=== PATIENT | female | born 1990 | race Caucasian/White ===

== ENCOUNTER → 2016-12-21 | Outpatient (CLI) | payer OTHER | LOC: FIMAGING 09:06 | PROVIDERS: ATTEND Family Medicine | DX: N60.12 Diffuse cystic mastopathy of left breast (principal) | CPT/HCPCS: G0204 ==

== ENCOUNTER 2017-03-08 14:12 | Inpatient (IN) | payer OTHER ==
--- NOTE | 2017-03-08 14:46 | EDPHY ---
H & P Time Seen by Provider: 03/08/17 14:32 HPI/ROS: CHIEF COMPLAINT: Trouble speaking HISTORY OF PRESENT ILLNESS: 27-year-old woman has a history of pseudotumor cerebri and had monthly spinal taps with 2 previous pregnancies. At that time her symptoms were difficulty hearing and difficulty with vision. She went on a date last night got home around midnight was normal. She awoke at 9:00 a.m. today and felt dizzy and off balance and had difficulty speaking. According to her mother was here with her she has had difficulty finishing sentences and trouble stating the names of her children. Patient arrives tearful and says that she "feels confused" and says there is an associated left-sided headache with nausea but no visual symptoms. No hearing symptoms. REVIEW OF SYSTEMS: Eye: no change in vision ENT: no sore throat Cardiac: no chest pain or syncope Pulmonary: no cough or SOB Abdomen: no vomiting, diarrhea, abdominal pain Musculoskeletal: No neck pain Skin: no rash Neuro: HPI Constitutional: no fever : no urinary symptoms A comprehensive 10 point review of systems is otherwise negative aside from elements mentioned in the history of present illness. PAST MEDICAL HISTORY: Includes pseudotumor cerebri as noted above, anxiety and irritable bowel, thyroid cancer, appendectomy, right ankle surgery, tubal ligation. Molar , cervical cancer, migraine headaches. Social history: 1 drink last night, occasional alcohol, no smoking or drugs. General Appearance: Alert and conversant, cooperative. Tearful and anxious. Eyes: No scleral icterus. Discs appear sharp, extraocular motion intact, no proptosis. ENT, Mouth: Normal mucous membranes. Respiratory: Normal respiratory effort, breath sounds equal, lungs are clear to auscultation. Cardiovascular: Regular rate and rhythm. Gastrointestinal: Abdomen is soft and non tender. Neurological: Alert, follows commands. Knows her name and age. Speech is hesitant, mild word-finding difficulty. Face is symmetric, she has difficulty lifting her left leg off the bed but can do so, it is subjectively slightly weaker than or other 3 extremities. No pronator drift or tremor and normal [id number]. Skin: Warm and dry, no rashes. Musculoskeletal: No peripheral edema and no joint swelling. Psychiatric: Tearful, appears anxious. Emergency Department course/MDM: Patient made stroke alert at 2:45 p.m. She has difficulty with word finding and speech as well as weakness in her left leg. Last known normal was at midnight, which is less than 24 hours prior to now. Jodi 1452. 1508: Normal noncontrast head CT. 1515: Negative CT angiography of the head, Helgans. 1521: No acute treatment or additional emergency department diagnostics per Mckenna, admit, Neurology consultation, consider MRI Discussed with patient and mother at 3:25 p.m., Reglan 10 mg IV and Toradol 15 mg IV. 1529: Dr. Rayo Fox will consult. 1536: [place] for Dr. Patton. Smoking Status: Former smoker Constitutional: Initial Vital Signs Temperature (C) 36.9 C 03/08/17 14:17 Heart Rate 82 03/08/17 14:17 Respiratory Rate 14 03/08/17 14:17 Blood Pressure 134/86 H 03/08/17 14:17 O2 Sat (%) 96 03/08/17 14:17 O2 Delivery Mode Room Air Allergies/Adverse Reactions: azithromycin Allergy (Severe, Verified 03/08/17 14:16) Hives ceftriaxone sodium [From Rocephin] Allergy (Severe, Verified 03/08/17 14:16) Hives Cephalosporins Allergy (Severe, Verified 03/08/17 14:16) Anaphylaxis metronidazole Allergy (Verified 03/08/17 14:16) Home Medications: Medication Instructions Recorded Cetirizine [ZyrTEC 10 mg (*)] 10 mg PO DAILY PRN 03/08/17 Ondansetron Odt [Zofran Odt 4 mg 4 mg PO Q4 PRN 03/08/17 (*)] Thyroid,Pork [Jackson Thyroid] 30 mg PO DAILY@14 03/08/17 Thyroid,Pork [Jackson Thyroid] 90 mg PO DAILY 03/08/17 Topiramate [Topamax] 50 mg PO HS 03/08/17 Medical Decision Making - Diagnostics EKG Interpretation: 12-lead EKG interpreted by me; official reading is in trace master. My interpretation is sinus rhythm, normal intervals, no ischemic changes. Imaging Results: Imaging Impressions Chest X-Ray 03/08/17 14:45 Impression: Negative. Head CT 03/08/17 14:45 Impression: Normal brain. No intracranial hemorrhage or evidence of acute cortical ischemia. Findings discussed with Emergency Department physician, BALWINDER PIMENTEL at 2016 15:07. Head CTA 03/08/17 14:46 Impression: 1. Normal intracranial arterial circulation. No evidence of embolic disease or aneurysm. 2. Patent venous system. Findings discussed with Emergency Department physician, Balwinder Pimentel M.D., on March 08, 2017 at 1515. Neck CTA 03/08/17 14:46 Impression: Normal carotid and vertebral arteries. No dissection or occlusion. Findings discussed with Emergency Department physician, Balwinder Pimentel M.D., on March 08, 2017 at 1515. Measurement of carotid stenosis is based on the residual internal carotid diameter with [place] Symptomatic Carotid Endarterectomy Trial (NASCET) based stenosis levels. Differential Diagnosis: Differential considered including but not limited to seizure, intracranial mass or bleed, ischemic stroke, multiple sclerosis. Critical Care Time: Critical care time spent by me, Dr. Pimentel, exclusively with the care of this patient was 35 minutes, exclusive of PA or COMMERCIAL ACCOUNTANT time and exclusive of separate procedures. The organ system at risk was neurologic and I ordered multiple diagnostics, serial examinations, consultation with Dr. Fox and [facility], to evaluate and stabilize the patient's condition. - Data Points Laboratory Results: Laboratory Results 03/08/17 14:32 03/08/17 14:32 03/08/17 03/08/17 03/08/17 14:44 14:32 14:32 WBC RBC Hgb POC Hgb 15.3 gm/dL gm/dL (12.6-16.3) Hct POC Hct 45 % % (38-47) MCV MCH MCHC RDW Plt Count MPV Neut % (Auto) Lymph % (Auto) [place] % (Auto) Eos % (Auto) Baso % (Auto) Nucleat RBC Rel Count Absolute Neuts (auto) Absolute Lymphs (auto) Absolute Monos (auto) Absolute Eos (auto) Absolute Basos (auto) Absolute Nucleated RBC Immature Gran % Immature Gran # PT INR POC Sodium 141 mEq/L mEq/L (134-144) Sodium 141 mEq/L mEq/L (134-144) POC Potassium 3.7 mEq/L mEq/L (3.3-5.0) Potassium 3.7 mEq/L mEq/L (3.5-5.2) POC Chloride 104 mEq/L mEq/L (97-110) Chloride 107 mEq/L mEq/L (97-110) Carbon Dioxide 19 mEq/l L mEq/l (22-31) Anion Gap 15 mEq/L mEq/L (8-16) POC BUN 11 mg/dL mg/dL (7-23) BUN 11 mg/dL mg/dL (7-23) Creatinine 0.7 mg/dL mg/dL (0.6-1.0) POC Creatinine 0.8 mg/dL mg/dL (0.6-1.0) Estimated GFR > 60 Glucose 90 mg/dL mg/dL (70-100) POC Glucose 92 mg/dL mg/dL (70-100) Calcium 9.1 mg/dL mg/dL (8.5-10.4) Troponin I < 0.012 ng/mL ng/mL (0-0.034) Beta HCG, Qual NEGATIVE 03/08/17 03/08/17 14:32 14:32 WBC 7.88 10^3/uL 10^3/uL (3.80-9.50) RBC 5.19 10^6/uL 10^6/uL (4.18-5.33) Hgb 15.2 g/dL g/dL (12.6-16.3) POC Hgb Hct 43.3 % % (38.0-47.0) POC Hct MCV 83.4 fL fL (81.5-99.8) MCH 29.3 pg pg (27.9-34.1) MCHC 35.1 g/dL g/dL (32.4-36.7) RDW 12.9 % % (11.5-15.2) Plt Count 226 10^3/uL 10^3/uL (150-400) MPV 9.6 fL fL (8.7-11.7) Neut % (Auto) 69.6 % % (39.3-74.2) Lymph % (Auto) 21.6 % % (15.0-45.0) [place] % (Auto) 6.9 % % (4.5-13.0) Eos % (Auto) 1.1 % % (0.6-7.6) Baso % (Auto) 0.4 % % (0.3-1.7) Nucleat RBC Rel Count 0.0 % % (0.0-0.2) Absolute Neuts (auto) 5.49 10^3/uL 10^3/uL (1.70-6.50) Absolute Lymphs (auto) 1.70 10^3/uL 10^3/uL (1.00-3.00) Absolute Monos (auto) 0.54 10^3/uL 10^3/uL (0.30-0.80) Absolute Eos (auto) 0.09 10^3/uL 10^3/uL (0.03-0.40) Absolute Basos (auto) 0.03 10^3/uL 10^3/uL (0.02-0.10) Absolute Nucleated RBC 0.00 10^3/uL 10^3/uL (0-0.01) Immature Gran % 0.4 % % (0.0-1.1) Immature Gran # 0.03 10^3/uL 10^3/uL (0.00-0.10) PT 13.8 SEC SEC (12.0-15.0) INR 1.07 (0.83-1.16) POC Sodium Sodium POC Potassium Potassium POC Chloride Chloride Carbon Dioxide Anion Gap POC BUN BUN Creatinine POC Creatinine Estimated GFR Glucose POC Glucose Calcium Troponin I Beta HCG, Qual Medications Given: Discontinued Medications Sodium Chloride (Ns) 1,000 mls @ 0 mls/hr IV ONCE ONE; Wide Open PRN Reason: Protocol Stop: 03/08/17 15:29 Last Admin: 03/08/17 15:46 Dose: 1,000 mls Ketorolac Tromethamine (Toradol) 15 mg IVP EDNOW ONE Stop: 03/08/17 15:29 Last Admin: 03/08/17 15:46 Dose: 15 mg Metoclopramide HCl (Reglan Injection) 10 mg IVP EDNOW ONE Stop: 03/08/17 15:29 Last Admin: 03/08/17 15:46 Dose: 10 mg Point of Care Test Results: 03/08/17 14:44 POC Sodium 141 POC Potassium 3.7 POC Chloride 104 POC BUN 11 POC Creatinine 0.8 POC Glucose 92 Departure - Departure Disposition: [facility] Inpatient Acute Clinical Impression: Left leg weakness, Word finding difficulty Condition: Good
[2017-03-08] MEDS ORDERED: IOPAMIDOL (ISOVUE 370) 100 ML BTL IV ONE (14:47)
[2017-03-08 14:55] LABS: % IMMATURE GRANULYOCYTES 0.4 % (0.0-1.1); ABSOLUTE IMMATURE GRANULOCYTES 0.03 10^3/uL (0.00-0.10); ADD DIFF? NO; ADD MORPH? NO; ADD SCAN? NO; ATYPICAL LYMPHOCYTE FLAG 0 (0-99); FRAGMENT RBC FLAG 0 (0-99); HEMATOCRIT 43.3 % (38.0-47.0); HEMOGLOBIN 15.2 g/dL (12.6-16.3); LEFT SHIFT FLG 0 (0-99); LIPEMIA HEMOLYSIS FLAG 90 (0-99); MEAN CELL HEMOGLOBIN 29.3 pg (27.9-34.1); MEAN CELL HEMOGLOBIN CONCENTR. 35.1 g/dL (32.4-36.7); MEAN CELL VOLUME 83.4 fL (81.5-99.8); MEAN PLATELET VOLUME 9.6 fL (8.7-11.7); PLATELET CLUMPS FLAG 0 (0-99); PLATELET COUNT 226 10^3/uL (150-400); RED BLOOD CELL COUNT 5.19 10^6/uL (4.18-5.33); RED CELL DISTRIBUTION WIDTH 12.9 % (11.5-15.2)
[2017-03-08 15:00] LABS: ANION GAP 15 mEq/L (8-16); CALCIUM 9.1 mg/dL (8.5-10.4); CARBON DIOXIDE 19 mEq/l (22-31); CHLORIDE 107 mEq/L (97-110); CREATININE 0.7 mg/dL (0.6-1.0); GLOMERULAR FILTRATION RATE > 60; GLUCOSE 90 mg/dL (70-100); POTASSIUM 3.7 mEq/L (3.5-5.2); SODIUM 141 mEq/L (134-144)
[2017-03-08 15:02] LABS: INR 1.07 (0.83-1.16); PROTIME(PATIENT) 13.8 SEC (12.0-15.0)
[2017-03-08 15:12] LABS: TROPONIN I < 0.012 ng/mL (0-0.034)
--- NOTE | 2017-03-08 15:25 | CPEKG ---
Heart Rate: 71 RR Interval: 845 P-R Interval: 172 QRSD Interval: 86 QT Interval: 396 QTC Interval: 431 P [place]: 23 QRS [place]: 25 T Wave [place]: 12 EKG Severity - NORMAL ECG - EKG Impression: SINUS RHYTHM Electronically Signed By: Lloyd Ojeda 08-Mar-2017 16:15:04
[2017-03-08] MEDS ORDERED: KETOROLAC 30 MG/1 ML SDV IVP ONE (15:28)
[2017-03-08] MEDS ORDERED: METOCLOPRAMIDE 10 MG/2 ML VIAL IVP ONE (15:28)
[2017-03-08] MEDS ORDERED: NS 1,000 ML IV ONE (15:28)
[2017-03-08] MEDS ORDERED: ONDANSETRON 4 MG/2 ML VIAL ONE (15:29)
[2017-03-08] MEDS ORDERED: PROMETHAZINE HCL 25 MG/ML INJ IVP PRN (17:08)
[2017-03-08] MEDS ORDERED: METOCLOPRAMIDE 10 MG/2 ML VIAL IVP PRN (17:08)
[2017-03-08] MEDS ORDERED: ONDANSETRON 4 MG/2 ML VIAL IVP PRN (17:08)
[2017-03-08] MEDS ORDERED: NS 1,000 ML IV SCH (17:15)
--- NOTE | 2017-03-08 17:47 | GHP ---
[f rep st] HISTORY AND PHYSICAL DATE OF ADMISSION: 03/08/2017 CHIEF COMPLAINT: Left leg weakness and difficulty speaking. HISTORY OF PRESENT ILLNESS: This is a 27-year-old female with a history of pseudotumor cerebri who presents with left leg weakness and difficulty speaking. She is right-handed. She went out to [employer] [place], came back home last night, and went to bed around midnight. At that point, she did not have any weakness but she felt slightly "loopy." She woke up this morning dizzy, called her to help her to the bathroom. She thought she was walking straight but ran into the wall. She did not fall . She describes her left leg to be quite "heavy." She also says that, as well, she cannot feel sen sation in that leg. She also tells me she is slightly confused. She is having difficulty finding t he right word. Per her mom, she is also mixing up some words. She tells me she has some left-sided low back pain. She tells me she has a history of meningitis diagnosed in 2009, she describes this as viral, not treated with antibiotics. She has a headache which is worse than normal. She has a l ittle bit of neck pain. She is able to fully flex her neck without worsening of her pain. She came into the ED as a stroke alert. CT non-contrast of her head, as well as CT angio of her hea d and neck were normal. PAST MEDICAL/SURGICAL HISTORY: 1. Pseudotumor cerebri. 2. Viral meningitis. 3. Thyroid cancer, status post thyroidectomy. 4. Obesity. 5. Cystic fibrosis carrier. 6. Anxiety. MEDICATIONS: She tells me she takes Topamax and Freeland. ALLERGIES: Azithromycin, Rocephin, cephalosporins, Flagyl. SOCIAL HISTORY: She is . She has 2 kids. She rarely drinks. She does not smoke. She is a ccompanied by her mom. FAMILY HISTORY: No thyroid cancer. REVIEW OF SYSTEMS: 10-point review of systems is conducted and is negative except per HPI. PHYSICAL EXAMINATION: VITAL SIGNS: Blood pressure 133/72, heart rate 72, respiration rate 18, satt ing at 98% on room air, temperature 36.4. GENERAL: The patient is a pleasant obese female, who valentina ears distressed, almost tearful. HEENT: Normocephalic, atraumatic. CARDIOVASCULAR: Regular rate and rhythm. No murmurs, rubs, or gallops. She does have a scar consistent with thyroidectomy. PUL MONARY: In no respiratory distress. Clear to auscultation bilaterally. ABDOMEN: Soft, nontender, nondistended. SKIN: No rash. : No Bertrand. NEUROLOGIC: cranial nerves 2-12 intact. She is al ert and oriented x3. She has trouble repeating short phrases. She is speaking somewhat slowly alth ough fluently on my exam. She has no pronator drift. Strength is 5/5 in her upper extremities. It is 2/5 in her left lower extremity and 5/5 in her right lower extremity. Sensation to light touch is diminished in the right upper extremity as well as her left lower extremity. PSYCHIATRIC: Borde rline tearful. LABORATORY: CBC is normal. INR is normal. Basic metabolic panel is normal, glucose is 92. DATA: 1. Neck CT angiogram shows normal carotid and vertebral arteries. 2. Head CT angiogram shows normal circulation, no embolic disease or aneurysm, and patent venous sy stem. 3. Head CT shows normal brain. 4. EKG, which I personally viewed and interpreted, shows sinus rhythm, normal axis; T-wave inversio n in V1 and V2, as well as lead III. Nothing acutely ischemic. I discussed this with Dr. Fox, will proceed with a brain MRI. IMPRESSION/PLAN: 1. This is a 27-year-old female, who presents with difficulty speaking, left lower extremity weakne ss, some subjective left upper extremity weakness, and subjective right upper extremity decreased se nsation: Neurologic findings do not fit very well anatomically. She does have a history of pseudot umor cerebri. She also has a history of meningitis; both of these are on the differential. Stroke is on the differential, as well as conversion disorder. At this point, will proceed with MRI with a nd without contrast of her brain. Dr. Fox will consult. Could consider lumbar spine MRI, giv en her back pain, but will hold for now. Will hold off on lumbar puncture at this time, as well. W ill check B 12 and TSH, as well as full metabolic panel. 2. History of pseudotumor cerebri. 3. History of hypothyroid: Continue her Freeland Thyroid. 4. History of headaches: Continue her Topamax. /[id number]/MODL
[2017-03-08] MEDS ORDERED: GADOBUTROL 10 ML VIAL IVP ONE (18:41)
[2017-03-08] MEDS ORDERED: CETIRIZINE 10 MG TAB PO PRN (18:55)
[2017-03-08 19:19] LABS: COLOR PALE YELLOW; LEUKOCYTE ESTERASE,URINE NEGATIVE (NEGATIVE); NITRITE,URINE NEGATIVE (NEGATIVE)
[2017-03-08 19:54] LABS: MAGNESIUM 1.9 mg/dL (1.6-2.3)
[2017-03-08] MEDS ORDERED: NON-FORMULARY NEW DRUG (Topiramate [Topamax] 50 MG) PO SCH (21:00)
--- NOTE | 2017-03-08 21:07 | GCON ---
[f rep st] CONSULTATION GASTROENTEROLOGY CONSULTATION REFERRING PHYSICIAN: Tomás Ramey MD The patient is a 27-year-old woman with a complex history of thyroid cancer, as well as history of p seudotumor cerebri, treated in the past with Diamox and repeated lumbar punctures. She has had two pregnancies, and has a 2-year-old and a 3-year-old. One of her children has autism. She says that she and her are in couples therapy, but she has been feeling fairly good lately. She presen ledy to the hospital emergency department today and was seen by Dr. Shah. At that time she had repor ledy that she went to bed feeling fine, got up at 9:00 a.m. and was feeling dizzy and off balance, an d eventually started having some trouble with her verbal expression. She was veering as she walked and describes the dizziness as being a disequilibrium rather than true vertigo. Her mother noticed that she was having trouble expressing herself. She was feeling confused and was tearful. She has had some headache with nausea. She has a little bit of light sensitivity now. She says that this i s not the same as some of her typical migraines in the past. She complains of feeling paresthesias and abnormal strength in the left side predominantly, which includes her face, arm and leg. She had told Dr. Ramey that there were some right arm symptoms as well with paresthesias. She has not guzman d any trauma or falls. REVIEW OF SYSTEMS: Negative for fever or chills. Otherwise a 10-point review of systems is complet ed and unremarkable. PAST MEDICAL HISTORY: History is as outlined above, but also right ankle surgery, tubal ligation, m olar , cervical cancer and migraine headache. She had a drink of alcohol last night but do es not have excessive drinking. No smoking or drug use. FAMILY HISTORY: It is not known from her maternal side who was adopted. PHYSICAL EXAMINATION: VITAL SIGNS: Blood pressure 133/72, pulse of 72, respirations 18, temperatur e 36.4. GENERAL: She is a mildly overweight woman in no acute distress. EYES: Clear. NECK: Sup ple, with no bruits or masses. CARDIAC: Regular rate and rhythm, no murmur. NEUROLOGIC: She is a wake, alert and attentive with an affect characterized by being a little bit flattened and seems a l ittle bit sad. She was almost tearful at times. She has a somewhat child-like demeanor, but is fri endly and able to communicate effectively. She says she really has been feeling good despite some o f the stresses that are happening, and says that going to therapy with her has been helpful. The patient is oriented and able to follow instructions. Pupils are 2 mm and reactive, no visual field loss. Extraocular movements are intact with no nystagmus. Normal facial movement and strengt h. Sensation she reports to be about 20% less in the left face compared to the right. Motor exam r eveals some inconsistencies with limited effort, and some give-way in the upper extremities, but at least 4/5 without clear-cut asymmetry, although rapid alternating movements are a little slowed in t he left arm compared to the right. Sensory testing in the upper extremities reveals a relative redu ction in sensation that is maybe 20% less in the left arm compared to the right. In the lower extre mities she has a much more profound decrease in sensation to touch, to the point where she says she cannot even feel me touching her, although she is able to feel the touch of a tuning fork and says t hat it feels warm. She can feel the vibration in the great toe bilaterally. The weakness in the le ft lower extremity is inconsistent, and in the 4/5 range. Right leg does not show any evidence of w eakness. Reflexes are a little brisk but symmetric. No pathologic reflexes. LABORATORIES: I have reviewed the diagnostic studies that included head CT, CT angiogram of the hea d and neck, and those are unremarkable. The laboratory studies show normal CBC, electrolytes, and coagulation studies. IMPRESSION: The patient is presenting with some subacute symptoms evolving over the last 12 hours, which are characterized by some speech difficulty, headache, variable feelings of dizziness, predomi nantly left-sided paresthesias and some weakness, and an examination characterized by inconsistencie s but perhaps some embellishment of minor deficits versus a functional disorder or a conversion diso rder. She has had previous evaluations over the years for pseudotumor cerebri, and the most recent evaluation 3 years ago did not show any evidence of increased intracranial pressure. This is not a typical presentation for pseudotumor cerebri, so I think that is relatively unlikely. Atypical migr tadeo phenomena is a differential consideration, as well as central nervous system demyelination, or less likely stroke. Although she says she is not feeling particularly stressed, she is in a situati on that would certainly be stressful with marital counseling and two young children, including a chi ld with autism. This is certainly unclear as to why she has this constellation of symptoms, but hopefully she will h ave spontaneous improvement. We will go through the appropriate workup to include brain MRI, lookin g for any structural lesions. Beyond that, clinical observation would be the plan, unless something changes to warrant additional workup. We will have her start working with PT and OT tomorrow, and move towards discharge as soon as she is stabilized or safe to be worked up as an outpatient. The t otal unit time was 55 minutes, with greater than 50% of the time counseling and eqas-vq-want discuss ion. /[id number]/MODL
[2017-03-08] MEDS: TOPIRAMATE 25 MG TAB PO SCH (21:17)
[2017-03-08] MEDS: ACETAMINOPHEN 325 MG TAB PO PRN (21:28)
[2017-03-08] MEDS: MELATONIN 3 MG TAB PO SCH (22:18)
[2017-03-09] MEDS: ACETAMINOPHEN 325 MG TAB PO PRN ×3 (02:46→22:04)
[2017-03-09] MEDS: ONDANSETRON DISINTEGRATING 4 MG TAB PO PRN ×2 (05:20→22:04)
[2017-03-09 06:09] LABS: % IMMATURE GRANULYOCYTES 0.4 % (0.0-1.1); ABSOLUTE IMMATURE GRANULOCYTES 0.03 10^3/uL (0.00-0.10); ADD DIFF? NO; ADD MORPH? NO; ADD SCAN? NO; ATYPICAL LYMPHOCYTE FLAG 10 (0-99); FRAGMENT RBC FLAG 0 (0-99); HEMATOCRIT 39.2 % (38.0-47.0); HEMOGLOBIN 13.2 g/dL (12.6-16.3); LEFT SHIFT FLG 0 (0-99); LIPEMIA HEMOLYSIS FLAG 80 (0-99); MEAN CELL HEMOGLOBIN 28.8 pg (27.9-34.1); MEAN CELL HEMOGLOBIN CONCENTR. 33.7 g/dL (32.4-36.7); MEAN CELL VOLUME 85.6 fL (81.5-99.8); PLATELET CLUMPS FLAG 0 (0-99); PLATELET COUNT 203 10^3/uL (150-400); RED BLOOD CELL COUNT 4.58 10^6/uL (4.18-5.33)
[2017-03-09 06:21] LABS: ALANINE AMINOTRANSFERASE 32 IU/L (9-52); ALBUMIN 3.5 g/dL (3.5-5.0); ALKALINE PHOSPHATASE 47 IU/L (38-126); ANION GAP 8 mEq/L (8-16); ASPARTATE AMINOTRANSFERASE 16 IU/L (14-46); BILIRUBIN,TOTAL 0.4 mg/dL (0.1-1.4); CALCIUM 8.5 mg/dL (8.5-10.4); CARBON DIOXIDE 19 mEq/l (22-31); CHLORIDE 111 mEq/L (97-110); CREATININE 0.8 mg/dL (0.6-1.0); GLOMERULAR FILTRATION RATE > 60; GLUCOSE 92 mg/dL (70-100); POTASSIUM 4.2 mEq/L (3.5-5.2); SODIUM 138 mEq/L (134-144); TOTAL PROTEIN 5.6 g/dL (6.3-8.2)
[2017-03-09] MEDS: THYROID 60 MG TAB PO SCH ×2 (08:11→13:19)
[2017-03-09] MEDS ORDERED: NON-FORMULARY NEW DRUG (Thyroid,Pork [Armour Thyroid] 90 MG) PO SCH (09:00)
--- NOTE | 2017-03-09 11:27 | HOSPPROG ---
Hospitalist Progress Note Assessment/Plan: # L leg weakness: complex migraine vs conversion disorder - appreciate neuro eval - work with PT/OT today # hypothyroid - armour thyroid Subjective: still weak in L leg; still with difficulty speaking Objective: Vital Signs Temp Pulse Resp BP Pulse Ox 36.6 C 65 20 122/55 H 95 03/09/17 08:03 03/09/17 08:03 03/09/17 08:03 03/09/17 08:03 03/09/17 08:03 Laboratory Results 03/09/17 05:17 03/09/17 05:17 03/08/17 03/09/17 03/10/17 05:59 05:59 05:59 Intake Total 2750 Balance 2750 PT 13.8 SEC (12.0-15.0) 03/08/17 14:32 INR 1.07 (0.83-1.16) 03/08/17 14:32 chart reviewed MRI reviewed - Physical Exam Constitutional: no apparent distress, appears nourished Cardiovascular: regular rate and rhythym, no murmur, rub, or gallop, systolic murmur Respiratory: no respiratory distress, no rales or rhonchi, clear to auscultation Gastrointestinal: normoactive bowel sounds, soft, non-tender abdomen, no palpable masses Neurologic: other (slow speech; L leg still weak) ICD10 Worksheet Patient Problems: Problems Problem Status Onset Pseudotumor cerebri syndrome Acute Left leg weakness Acute Word finding difficulty Acute
[2017-03-09] MEDS ORDERED: THYROID PORK 30 MG PO SCH (14:00)
[2017-03-09] MEDS: IBUPROFEN 200 MG TAB PO PRN (17:49)
[2017-03-09] MEDS: TOPIRAMATE 25 MG TAB PO SCH (21:59)
[2017-03-09] MEDS: MELATONIN 3 MG TAB PO SCH (21:59)
[2017-03-10] MEDS: IBUPROFEN 200 MG TAB PO PRN ×2 (02:36→12:01)
[2017-03-10 07:43] VITALS: BP 108/58; PULSE 66; RESP 16; TEMP 97.9; O2SAT 93
[2017-03-10] MEDS: THYROID 60 MG TAB PO SCH ×2 (07:51→13:00)
[2017-03-10] MEDS: ACETAMINOPHEN 325 MG TAB PO PRN (07:54)
--- NOTE | 2017-03-10 09:10 | HOSPPROG ---
Hospitalist Progress Note Assessment/Plan: #Left leg weakness: functional vs. conversion? -CT, CTA, and MRI with no structural lesions. Not typical symptoms with pseudotumor cerebri -aggressive PT/OT Objective: Vital Signs Temp Pulse Resp BP Pulse Ox 36.6 C 66 16 108/58 L 93 03/10/17 07:42 03/10/17 07:42 03/10/17 07:42 03/10/17 07:42 03/10/17 07:42 03/09/17 03/10/17 03/11/17 05:59 05:59 05:59 Intake Total 1700 Balance 1700 PT 13.8 SEC (12.0-15.0) 03/08/17 14:32 INR 1.07 (0.83-1.16) 03/08/17 14:32 ICD10 Worksheet Patient Problems: Problems Problem Status Onset Left leg weakness Acute Word finding difficulty Acute Pseudotumor cerebri syndrome Acute
--- NOTE | 2017-03-10 10:52 | NEUROPROG ---
Assessment: I agree with Dr. Cardona that aggressive physical and occupational therapy is the best treatment for now. Given the lack of specific cause for this, it may be difficult to determine prognosis and short-term needs, but she may be discharged as soon as she is safe. There is not a clear indication for further diagnostic studies. I am happy to continue to provide input as needed. Please contact me with any questions. Subjective: The patient was seen yesterday morning. At that time, I told her about the MRI being normal. She still has some symptoms of relative dysfunction in the left leg and left arm but facial numbness had resolved. She feels slow cognitively and describes a variable degree of headache. Objective: Vital Signs Temp Pulse Resp BP Pulse Ox 36.6 C 66 16 108/58 L 93 03/10/17 07:42 03/10/17 07:42 03/10/17 07:42 03/10/17 07:42 03/10/17 07:42 03/09/17 03/10/17 03/11/17 05:59 05:59 05:59 Intake Total 1700 Balance 1700 PT 13.8 SEC (12.0-15.0) 03/08/17 14:32 INR 1.07 (0.83-1.16) 03/08/17 14:32 Her examination continues to show some inconsistencies with variable weakness on the left side and sensory complaints are slightly better, but also fairly inconsistent with a central nervous system or peripheral nervous system process. The brain MRI is reassuring with no abnormalities to suggest focal lesions. Allergies/Adverse Reactions: azithromycin Allergy (Severe, Verified 03/08/17 14:16) Hives ceftriaxone sodium [From Rocephin] Allergy (Severe, Verified 03/08/17 14:16) Hives Cephalosporins Allergy (Severe, Verified 03/08/17 14:16) Anaphylaxis metronidazole Allergy (Verified 03/08/17 14:16)
--- NOTE | 2017-03-10 13:09 | HOSPPROG ---
Hospitalist Progress Note Assessment/Plan: #Left leg weakness: functional vs. conversion? -CT, CTA, and MRI with no structural lesions. Not typical symptoms with pseudotumor cerebri -Improved strength and sensation in left leg -DC with outpatient PT DC today Subjective: more feeling in leg. Objective: Vital Signs Temp Pulse Resp BP Pulse Ox 36.6 C 66 16 108/58 L 93 03/10/17 07:42 03/10/17 07:42 03/10/17 07:42 03/10/17 07:42 03/10/17 07:42 03/09/17 03/10/17 03/11/17 05:59 05:59 05:59 Intake Total 1700 Balance 1700 PT 13.8 SEC (12.0-15.0) 03/08/17 14:32 INR 1.07 (0.83-1.16) 03/08/17 14:32 - Physical Exam Constitutional: obese Eyes: PERRL Ears, Nose, Mouth, Throat: moist mucous membranes Cardiovascular: regular rate and rhythym Respiratory: no respiratory distress, no rales or rhonchi Gastrointestinal: normoactive bowel sounds, soft, non-tender abdomen Genitourinary: no bladder fullness Skin: warm Musculoskeletal: full muscle strength (decreased strength left leg: decreased extension, flexion) Neurologic: AAOx3, CN II-XII Intact Psychiatric: interacting appropriately ICD10 Worksheet Patient Problems: Problems Problem Status Onset Left leg weakness Acute Word finding difficulty Acute Pseudotumor cerebri syndrome Acute
--- NOTE | 2017-03-10 13:38 | GDS ---
[f rep st] DISCHARGE SUMMARY DISCHARGE DIAGNOSES: 1. Left leg weakness 2. Hypothyroidism. CONSULTATIONS: Neurology. HISTORY OF PRESENT ILLNESS: The patient is a 27-year-old female with a history of pseudotumor cerebri, thyroid cancer status post thyroidectomy, and obesity, presenting with left leg weakness and difficulty speaking. She is right handed. She went out to dinner and came home the night before admission and did not have any weakness, but felt loopy. She woke up the morning of admission dizzy, and called her in the bathroom. She thought she was walking straight, but ran into wall. She describes the leg as being heavy with decreased sensation in that leg. She has been having difficulty finding words and has been mixing up words per her mother. In the emergency room, she was came in as a stroke alert. CT noncontrast and CT angio neck were negative. HOSPITAL COURSE BY PROBLEM: 1. Left lower leg weakness. was evaluated by Neurology and considered functional disorder versus conversion disorder. CT head, CTA head and neck, and MRI were negative for structural disorder. Pseudotumor cerebri would be unusual with this presentation. The patient's symptoms are improving today. She was evaluated by PT and can continue outpatient therapy. 2. History of thyroid cancer status post status post thyroidectomy. Continue [place]. 3. Obesity. Counseled on diet and exercise. DISPOSITION: The patient is stable for discharge. FOLLOWUP: 1. Neurology as an outpatient. 2. Outpatient physical therapy. /[id number]/MODL MTDD
== END 2017-03-10 15:48 | disposition home or self-care (01) | DRG 948 ==
LOC: F3N 16:29 → OBSVTOIN 03-09 16:41
PROVIDERS: ADMIT Hospitalist; ATTEND Hospitalist
DX: R53.1 Weakness (principal); E89.0 Postprocedural hypothyroidism; E66.9 Obesity, unspecified; Z85.850 Personal history of malignant neoplasm of thyroid
CPT/HCPCS: 82607-90; 82947-QW; 96374; 97116-GP; 97162-GP; 97165-GO; 97535-GO; A9585; G0378; J1885; J2405; J2765; Q9967

== ENCOUNTER → 2017-05-10 | Outpatient (CLI) | payer OTHER ==
[~2017-05-10] MED LIST: LIDOCAINE 1% 300 MG/30 ML SDV ONE
== END ==
LOC: FIMAGING 08:23
PROVIDERS: ATTEND Psychiatry & Neurology Neurology
DX: G43.009 Migraine without aura, not intractable, without status migrainosus (principal); Z88.2 Allergy status to sulfonamides

== ENCOUNTER 2017-05-15 10:00 | Day surgery (SDC) | payer OTHER ==
[2017-05-15] MEDS ORDERED: IOPAMIDOL (ISOVUE-M 300) 15 ML VIAL ONE (11:13)
== END 2017-05-15 12:05 | disposition home or self-care (01) ==
LOC: FIMAGING 10:00
PROVIDERS: ATTEND Obstetrics & Gynecology
PROC: 3E0S3GC Introduction of Other Therapeutic Substance into Epidural Space, Percutaneous Approach (ICD-10-PCS; principal; 2017-05-15)
DX: G97.1 Other reaction to spinal and lumbar puncture (principal); R51 Headache
CPT/HCPCS: Q9967

== ENCOUNTER → 2017-06-27 | Outpatient (CLI) | payer OTHER | LOC: CIMAGING 15:02 | PROVIDERS: ATTEND Family Medicine | DX: M79.632 Pain in left forearm (principal); M25.532 Pain in left wrist | CPT/HCPCS: 73090-PO; 73110-PO ==

== ENCOUNTER → 2017-12-26 | Outpatient (CLI) | payer OTHER ==
--- NOTE | 2018-01-01 23:01 | CPEEG ---
[f rep st] ELECTROENCEPHALOGRAM EEG DATE OF STUDY: 12/26/2017 DATE OF INTERPRETATION: 01/01/2018 INTERPRETATION: Normal EEG during wakefulness and sleep. There were no potentially epileptogenic ab normalities present during the recording. REPORT: This EEG contains 10 Hz alpha activity to the posterior head regions. There was no abnormal activation at rest, during photic stimulation or hyperventilation. The patient became drowsy and fe ll asleep during the study. There was no abnormal activation during drowsiness, sleep or during time s of arousal. /[id number]/MODL
== END ==
LOC: FCPNEURO 14:39
PROVIDERS: ATTEND Psychiatry & Neurology Neurology
DX: R55 Syncope and collapse (principal)

== ENCOUNTER 2018-06-09 17:08 | Emergency (ER) | payer OTHER ==
[2018-06-09 17:20] VITALS: BP 133/69
--- NOTE | 2018-06-09 17:41 | EDPHY ---
H & P Time Seen by Provider: 06/09/18 17:20 HPI/ROS: CHIEF COMPLAINT: Hand/wrist injury HISTORY OF PRESENT ILLNESS: 28-year-old female stumbled and fell, striking the back of her left hand on a piece of edging wood on the floor. She did not fall on outstretched hand. She did not hit her head. She has no complaints of pain in the elbow or shoulder. Only reports discomfort across the dorsal surface of the left hand. REVIEW OF SYSTEMS: A comprehensive 10 system review of systems was reviewed and is otherwise negative aside from elements mentioned in the history of present illness. PAST MEDICAL HISTORY: Thyroid cancer, history of SVT, migraines, pseudotumor cerebri SOCIAL HISTORY: Here with her . GENERAL APPEARANCE: Pleasant, alert, no obvious distress. FOCUSED EXAM OF left upper extremity: No tenderness, full range of motion at the shoulder and elbow. No tenderness along the forearm. Patient does have some tenderness across the dorsum of the left wrist and proximal metacarpals. No abrasions. No skin break. No laceration. Questionable mild swelling. Positive radial and ulnar pulses. Brisk capillary refill in all fingers. Full range of motion in the fingers with some discomfort on extension. Smoking Status: Former smoker Constitutional: Initial Vital Signs Temperature (C) 36.7 C 06/09/18 17:16 Heart Rate 80 06/09/18 17:16 Respiratory Rate 18 06/09/18 17:16 Blood Pressure 133/69 H 06/09/18 17:16 O2 Sat (%) 94 06/09/18 17:16 O2 Delivery Mode Room Air Allergies/Adverse Reactions: azithromycin Allergy (Severe, Verified 06/09/18 17:13) Hives ceftriaxone sodium [From Rocephin] Allergy (Severe, Verified 06/09/18 17:13) Hives Cephalosporins Allergy (Severe, Verified 06/09/18 17:13) Anaphylaxis metronidazole Allergy (Verified 06/09/18 17:13) Home Medications: Medication Instructions Recorded Thyroid,Pork [[place] Thyroid] 90 mg PO DAILY 03/08/17 Zeenat Allergy 06/09/18 Baclofen 06/09/18 Cambia 06/09/18 Ketorolac Tromethamine 06/09/18 Vitamin B-12 06/09/18 Voltaren 06/09/18 Medical Decision Making - Diagnostics Imaging: I viewed and interpreted images myself ED Course/Re-evaluation: Wrist x-ray obtained. I see no fractures. Patient was given an Vaughn wrap for support. Ice, elevation, and support recommended. Tylenol or ibuprofen as needed for pain. Differential Diagnosis: Differential diagnosis for the patient's injury was considered including but not limited to contusion, abrasion, laceration, fracture, open fracture, or dislocation. Departure - Departure Disposition: Home, Routine, Self-Care Clinical Impression: Contusion of left wrist Qualifiers: Encounter type: initial encounter Qualified Code(s): S60.212A - Contusion of left wrist, initial encounter Condition: Good Instructions: Wrist Injury (ED), Contusion in Adults (ED) Additional Instructions: Mainstay of treatment will be to rest the hand and wrist, apply ice frequently, provide support such as Vaughn wrap, elevate, and take Tylenol or ibuprofen if needed for severe discomfort. Apply ice for 20-30 minutes every 2-3 hours for the next 48 hours. I recommend Ibuprofen (Motrin, Advil) or Naproxen Sodium (Aleve) for pain and anti-inflammatory effects. You may take either one, but do not take both. Your dose is: Ibuprofen 600 mg every 6-8 hours with food. OR Naproxen Sodium (Aleve) 220 mg every 12 hours. Okay to use Tylenol 650-1000 mg every 4-6 hours as needed for moderate pain. Referrals: Janny Tovar [Primary Care Provider] - As per Instructions
== END 2018-06-09 17:58 | disposition home or self-care (01) ==
LOC: CED 17:08
DX: S60.212A Contusion of left wrist, initial encounter (principal); W01.198A Fall on same level from slipping, tripping and stumbling with subsequent striking against other object, initial encounter; Y92.9 Unspecified place or not applicable; Z87.891 Personal history of nicotine dependence
CPT/HCPCS: 73110-PO

== ENCOUNTER 2018-11-14 15:46 | Emergency (ER) | payer BC, OTHER ==
[2018-11-14] MEDS ORDERED: DEXAMETHASONE 10 MG/ML VIAL IVP ONE (16:07)
[2018-11-14] MEDS ORDERED: METOCLOPRAMIDE 10 MG/2 ML VIAL IVP ONE (16:07)
[2018-11-14] MEDS ORDERED: NS 1,000 ML IV ONE (16:08)
--- NOTE | 2018-11-14 16:09 | EDPHY ---
H & P Stated Complaint: migraine 2 days Time Seen by Provider: 11/14/18 16:01 HPI/ROS: CHIEF COMPLAINT: Migraine HISTORY OF PRESENT ILLNESS: Patient is a 28-year-old female with history of extensive migraines. She states that she has had a migraine primarily on the right side of her head for the last 2 days. It has not resolved despite Botox injections by her neurologist in [place] as well as baclofen, Toradol, Voltaren, midrine and Zofran. She has not had a fever. She denies any trauma. She denies neck stiffness. She called her neurologist today who recommended she come to the ER because her symptoms were not resolving which is atypical. The patient states that otherwise her symptoms are not atypical. It is not more severe than usual. No thunderclap onset. She has in the past had migraines associated hemiplegia and visual changes but does not today. She does have Mild nausea but no vomiting. She also reports a history of pseudotumor cerebri which has since resolved. She had been on acetazolamide in the past but is no longer. She reports that her last 2 spinal taps revealed a opening pressure of 6 or 7. Severity: Severe Modifying factors: No improvement despite home medications REVIEW OF SYSTEMS: Constitutional: denies: chills, fever, recent illness, recent injury EENTM: denies: blurred vision, double vision, nose congestion Respiratory: denies: cough, shortness of breath Cardiac: denies: chest pain, irregular heart rate, lightheadedness, palpitations Gastrointestinal/Abdominal: denies: abdominal pain, diarrhea, nausea, vomiting, blood streaked stools Genitourinary: denies: dysuria, frequency, hematuria, pain Musculoskeletal: denies: joint pain, muscle pain Skin: denies: lesions, rash, jaundice, bruising Neurological: denies: headache, numbness, paresthesia, tingling, dizziness, weakness Hematologic/Lymphatic: denies: blood clots, easy bleeding, easy bruising Immunologic/allergic: denies: HIV/AIDS, transplant 10 systems reviewed and negative except as noted EXAM: GENERAL: Well-appearing, well-nourished and in no acute distress. HEAD: Atraumatic, normocephalic. EYES: Pupils equal round and reactive to light, extraocular movements intact, sclera anicteric, conjunctiva are normal. No papillary edema seen on retinal exam. ENT: TMs normal, nares patent, oropharynx clear without exudates. Moist mucous membranes. NECK: Normal range of motion, supple without lymphadenopathy or JVD. LUNGS: Breath sounds clear to auscultation bilaterally and equal. No wheezes rales or rhonchi. HEART: Regular rate and rhythm without murmurs, rubs or gallops. ABDOMEN: Soft, nontender, normoactive bowel sounds. No guarding, no rebound. No masses appreciated. BACK: No CVA tenderness, no spinal tenderness, step-offs or deformities EXTREMITIES: Normal range of motion, no pitting or edema. No clubbing or cyanosis. NEUROLOGICAL: Cranial nerves II through XII grossly intact. Normal speech, normal gait. 5/5 strength, normal movement in all extremities, normal sensation , normal reflexes PSYCH: Normal mood, normal affect. SKIN: Warm, dry, normal turgor, no visible rashes or lesions. Source: Patient - Personal History LMP (Females 10-55): Over 28 Days Ago - Medical/Surgical History Hx Asthma: No Hx Chronic Respiratory Disease: No Hx Diabetes: No Hx Cardiac Disease: No Hx Renal Disease: No Hx Cirrhosis: No Hx Alcoholism: No Hx HIV/AIDS: No Hx Splenectomy or Spleen Trauma: No Other PMH: pseudo tumor cerebri , IBS, anxiety, /THYROID CANCER 2013, appendectomy,rt ankle x2,2 c-sect and tubal, cervical cancer, migraines, svt, hypotension - Social History Smoking Status: Former smoker Constitutional: Initial Vital Signs Temperature (C) 37 C 11/14/18 15:53 Heart Rate 81 11/14/18 15:53 Respiratory Rate 18 11/14/18 15:53 Blood Pressure 148/75 H 11/14/18 15:53 O2 Sat (%) 96 11/14/18 15:53 O2 Delivery Mode Room Air Allergies/Adverse Reactions: azithromycin Allergy (Severe, Verified 11/14/18 15:56) Hives ceftriaxone sodium [From Rocephin] Allergy (Severe, Verified 11/14/18 15:56) Hives Cephalosporins Allergy (Severe, Verified 11/14/18 15:56) Anaphylaxis metronidazole Allergy (Verified 11/14/18 15:56) Home Medications: Medication Instructions Recorded Thyroid,Pork [[place] Thyroid] 90 mg PO DAILY 03/08/17 Zeenat Allergy 06/09/18 Baclofen 06/09/18 Cambia 06/09/18 Ketorolac Tromethamine 06/09/18 Vitamin B-12 06/09/18 Voltaren 06/09/18 Midrin 11/14/18 Zofran 11/14/18 Medical Decision Making - Diagnostics Imaging Results: Imaging Impressions Head CT 11/14/18 16:07 Impression: Head CT within normal limits. Results called to Dr. Dickson at 4:43 PM General information for patients regarding this examination can be found at [email or web address] If you have questions or comments about this report, please contact me at (hospital) or [phone] (cell). Imaging: Discussed imaging studies w/ body recall instructor Radiologist ED Course/Re-evaluation: I have put a page out to her neurologist Dr Lin, Ioana [phone]. 4:30 p.m. I spoke with Dr. Lin on the phone who feels that the patient's symptoms are not atypical and does not think that she needs CT scan or lumbar puncture etc. She recommends are typical migraine protocol. The patient however has already return from CT scan. Will proceed with typical protocols. 4:50 p.m. the patient is feeling somewhat better. She declines further medication at this time and states that she would most like to go home and sleep. 5:15 p.m. the patient states that she is feeling better and is eager to go home. She declines prescriptions. Differential Diagnosis: Partial list of the Differential diagnosis considered include but were not limited to; migraine headache, tension headache and although unlikely based on the history and physical exam, I also considered infection, concussion, hemorrhage, dissection, tumor, CVA. I discussed these differential diagnoses and the plan with the patient as well as the usual and expected course. The patient understands that the diagnosis is provisional and that in medicine we are not always correct and that further workup is often warranted. Usual and customary warnings were given. All of the patient's questions were answered. The patient was instructed to return to the emergency department should the symptoms at all worsen or return, otherwise to followup with the physician as we discussed. - Data Points Laboratory Results: 11/14/18 16:28 POC Sodium 140 mEq/L mEq/L (135-145) POC Potassium 3.3 mEq/L mEq/L (3.3-5.0) POC Chloride 104.0 mEq/L mEq/L (97-110) POC Total CO2 23 mEq/L mEq/L (22-31) POC BUN 10 mg/dL mg/dL (7-23) POC Creatinine 0.6 mg/dL mg/dL (0.6-1.0) POC Glucose 89 mg/dL mg/dL (70-100) POC Calcium 9.2 mg/dL mg/dL (8.5-10.4) Medications Given: Discontinued Medications Dexamethasone (Decadron Injection) 10 mg IVP EDNOW ONE Stop: 11/14/18 16:08 Last Admin: 11/14/18 16:23 Dose: 10 mg Diphenhydramine HCl (Benadryl Injection) 25 mg IVP EDNOW ONE Stop: 11/14/18 16:08 Last Admin: 11/14/18 16:23 Dose: 25 mg Sodium Chloride (Ns) 1,000 mls @ 0 mls/hr IV EDNOW ONE; Wide Open PRN Reason: Protocol Stop: 11/14/18 16:09 Last Admin: 11/14/18 16:23 Dose: 1,000 mls Metoclopramide HCl (Reglan Injection) 10 mg IVP EDNOW ONE Stop: 11/14/18 16:08 Last Admin: 11/14/18 16:23 Dose: 10 mg Point of Care Test Results: CBC CBC Collection Date 11/14/18 CBC Collection Time 16:23 WBC 4.90 RBC 5.13 HGB 15.0 HCT 43.1 PLT 174 Neut # 2.94 Neut 60 LYMPH # 1.52 LYMPH 31 MCV 84.0 Chemistry 11/14/18 16:28 POC Sodium 140 mEq/L mEq/L (135-145) POC Potassium 3.3 mEq/L mEq/L (3.3-5.0) POC Chloride 104.0 mEq/L mEq/L (97-110) POC Total CO2 23 mEq/L mEq/L (22-31) POC BUN 10 mg/dL mg/dL (7-23) POC Creatinine 0.6 mg/dL mg/dL (0.6-1.0) POC Glucose 89 mg/dL mg/dL (70-100) POC Calcium 9.2 mg/dL mg/dL (8.5-10.4) Departure - Departure Disposition: Home, Routine, Self-Care Clinical Impression: Migraine Qualifiers: Migraine type: without aura Status migrainosus presence: without status migrainosus Intractability: not intractable Qualified Code(s): G43.009 - Migraine without aura, not intractable, without status migrainosus Condition: Fair Instructions: Migraine Headache (ED) Referrals: Janny Tovar [Primary Care Provider] - 2-3 days, if not improved
[2018-11-14 17:11] VITALS: BP 108/68
== END 2018-11-14 17:33 | disposition home or self-care (01) ==
LOC: CED 15:46
DX: G43.009 Migraine without aura, not intractable, without status migrainosus (principal); I95.9 Hypotension, unspecified; E86.9 Volume depletion, unspecified
CPT/HCPCS: 70450-PO; 80048-ER; 96361-ER; 96374-ER; 96375-ER; J1100; J1200; J2765